=== PATIENT | male | born 1970 | race Caucasian/White ===

== ENCOUNTER → 2018-11-29 | Outpatient (CLI) | payer BC ==
--- NOTE | 2018-11-29 09:44 | PCVCIMAG ---
APPROVED REPORT Study performed: 11/29/2018 08:55:52 EXAM: Comprehensive 2D, Doppler, and color-flow Echocardiogram Patient Location: Echo lab Status: routine BSA: 2.37 HR: 60 bpmBP: 122/60 mmHg Rhythm: NSR Other Information Study Quality: Adequate Risk Factors: Cardiac Risk Factors: HTN Indications Atrial Fibrillation Cardiomyopathy 2D Dimensions IVSd: 11.19 (7-11mm) LVDd: 52.35 mm PWd: 8.93 (7-11mm)Ascending Ao: 32.97 (22-36mm) LVDs: 40.98 (25-40mm) Left Atrium: 35.07 (27-40mm) Aortic Root: 34.72 mm LV Single Plane 4CH: 38.10 % LV Single Plane 2CH: 41.16 % Biplane EF: 39.0 % Volumes Left Atrial Volume (Systole) Single Plane 4CH: 55.63 mLSingle Plane 2CH: 65.97 mL LA ESV Index: 28.00 mL/m2 Aortic Valve AoV Peak Lane.: 1.22 m/s AO Peak Gr.: 5.93 mmHgLVOT Max P.83 mmHg LVOT Max V: 0.84 m/s Mitral Valve E/A Ratio: 1.2 MV Decel. Time: 259.[address] 0.65 m/s MV A Lane.: 0.54 m/s IVRT: 121.11 ms Pulmonary Valve PV Peak Lane.: 0.97 m/sPV Peak Gr.: 3.75 mmHg Pulmonary Vein P Vein S: 0.41 m/sP Vein A: 0.28 m/s P Vein D: 0.50 m/sP Vein A Dur.: 110.7 msec P Vein S/D Ratio: 0.82 Tric[address] 2.64 m/s TR Peak Gr.: 27.94 mmHg TV Vmax: 0.44 m/s Left Ventricle The left ventricle is normal size. There is normal LV segmental wall motion. There is normal left ventricular wall thickness. Left ventricular systolic function is moderately decreased. LVEF is 40%. Mild diastolic dysfunction is present (impaired relaxation pattern). Right Ventricle The right ventricle is normal size. The right ventricular systolic function is normal. Atria The left atrium size is normal. The right atrium size is normal. Aortic Valve The aortic valve is normal in structure. No aortic regurgitation is present. There is no aortic valvular stenosis. Mitral Valve The mitral valve is normal in structure. Trace mitral regurgitation. No evidence of mitral valve stenosis. Tricuspid Valve The tricuspid valve is normal in structure. Trace tricuspid regurgitation with PAP of 35 mmHg. Pulmonic Valve The pulmonary valve is normal in structure. Mild pulmonic regurgitation. Great Vessels The aortic root is normal in size. IVC is normal in size and collapses >50% with inspiration. Pericardium There is no pericardial effusion. There is no pleural effusion. <Conclusion> Left ventricular systolic function is moderately decreased. LVEF is 40%. Mild diastolic dysfunction The aortic valve is normal in structure. No aortic regurgitation or stenosis The mitral valve is normal in structure. Trace mitral regurgitation. Trace tricuspid regurgitation with pulmonary artery pressure of 35 mmHg. There is no pericardial effusion.
== END | disposition home or self-care (01) ==
LOC: PCVCIMAG 09:02
PROVIDERS: ATTEND Internal Medicine
DX: I48.91 Unspecified atrial fibrillation (principal); I42.9 Cardiomyopathy, unspecified; G47.33 Obstructive sleep apnea (adult) (pediatric); I48.0 Paroxysmal atrial fibrillation; I10 Essential (primary) hypertension; I42.0 Dilated cardiomyopathy; I74.9 Embolism and thrombosis of unspecified artery; D68.62 Lupus anticoagulant syndrome; E78.5 Hyperlipidemia, unspecified; R60.0 Localized edema; Z86.718 Personal history of other venous thrombosis and embolism
CPT/HCPCS: 93306

== ENCOUNTER → 2019-03-12 | Outpatient (CLI) | payer BC ==
--- NOTE | 2019-03-12 16:45 | PCVCIMAG ---
APPROVED REPORT Study performed: 03/12/2019 14:32:44 EXAM: Comprehensive 2D, Doppler, and color-flow Echocardiogram Patient Location: Echo lab Status: routine BSA: 2.24 HR: 68 bpmBP: 100/70 mmHg Rhythm: NSR Other Information Study Quality: Adequate Risk Factors: Cardiac Risk Factors: HTN Indications Atrial Fibrillation dilated cardiomyopathy 2D Dimensions IVSd: 11.70 (7-11mm) LVDd: 47.65 mm PWd: 10.58 (7-11mm)Ascending Ao: 32.98 (22-36mm) LVDs: 37.35 (25-40mm) Left Atrium: 37.11 (27-40mm) Aortic Root: 31.00 mm LV Single Plane 4CH: 37.99 % LV Single Plane 2CH: 35.77 % Biplane EF: 36.1 % Volumes Left Atrial Volume (Systole) Single Plane 4CH: 52.[address]LS[address] 2CH: 59.24 mL LA ESV Index: 27.00 mL/m2 Aortic Valve AoV Peak Lane.: 1.15 m/s AO Peak Gr.: 5.32 mmHgLVOT Max P.32 mmHg LVOT Max V: 0.76 m/s Mitral Valve E/A Ratio: 0.8 MV Decel. Time: 360.[address] 0.41 m/s MV A Lane.: 0.54 m/s IVRT: 138.41 ms Pulmonary Valve PV Peak Lane.: 0.93 m/sPV Peak Gr.: 3.45 mmHg Pulmonary Vein P Vein S: 0.33 m/sP Vein A: 0.51 m/s P Vein D: 0.45 m/sP Vein A Dur.: 145.3 msec P Vein S/D Ratio: 0.[address] 2.25 m/s TR Peak Gr.: 20.18 mmHg TV Vmax: 0.37 m/s Left Ventricle The left ventricle is normal size. There is normal LV segmental wall motion. There is normal left ventricular wall thickness. Left ventricular systolic function is moderately decreased. LVEF 35-40%. Mild diastolic dysfunction is present (impaired relaxation pattern). Right Ventricle The right ventricle is normal size. The right ventricular systolic function is normal. Atria The left atrium size is normal. The right atrium size is normal. Aortic Valve The aortic valve is normal in structure. No aortic regurgitation is present. There is no aortic valvular stenosis. Mitral Valve The mitral valve is normal in structure. There is no mitral valve regurgitation noted. No evidence of mitral valve stenosis. Tricuspid Valve The tricuspid valve is normal in structure. Trace tricuspid regurgitation with PAP of 27 mmHg. Pulmonic Valve The pulmonary valve is normal in structure. Mild to moderate pulmonic regurgitation. Great Vessels The aortic root is normal in size. IVC is normal in size and collapses >50% with inspiration. Pericardium There is no pericardial effusion. There is no pleural effusion. <Conclusion> Left ventricular systolic function is moderately decreased. LVEF 35-40%. Mild diastolic dysfunction The aortic valve is normal in structure. No aortic regurgitation or stenosis. The mitral valve is normal in structure. No mitral valve regurgitation. Trace tricuspid regurgitation with pulmonary artery pressure of 27 mmHg. There is no pericardial effusion.
== END | disposition home or self-care (01) ==
LOC: PCVCIMAG 14:26
PROVIDERS: ATTEND Internal Medicine
DX: I37.1 Nonrheumatic pulmonary valve insufficiency (principal); I48.0 Paroxysmal atrial fibrillation; I10 Essential (primary) hypertension; E78.5 Hyperlipidemia, unspecified; D68.62 Lupus anticoagulant syndrome; Z86.718 Personal history of other venous thrombosis and embolism; Z79.899 Other long term (current) drug therapy; Z88.8 Allergy status to other drugs, medicaments and biological substances
CPT/HCPCS: 93306